=== PATIENT | female | born 1985 | race Caucasian/White ===

== ENCOUNTER 2016-12-15 12:28 | Emergency (ER) | payer BC ==
[2016-12-15 12:49] VITALS: BP 113/69
--- NOTE | 2016-12-15 12:57 | UC ---
Throat Pain/Nasal Lenard HPI - HPI Summary HPI Summary: sore throat x 1 day no nasal congestion, no fever, no chills, no cough - History of Current Complaint Chief Complaint: UCRespiratory Stated Complaint: SORE THROAT Time Seen by Provider: 12/15/16 12:51 Hx Obtained From: Patient Hx Last Menstrual Period: 12/03/16 Onset/Duration: Gradual Onset, Lasting Days - 1, Still Present Severity: Mild Cough: None Associated Signs & Symptoms: Negative: Dysphagia, FB Sensation, Drooling, Wheezing, Hoarseness, Sinus Discomfort, Nasal Discharge, Fever, Vomiting, Rash - Allergies/Home Medications Allergies/Adverse Reactions: Allergies Allergy/AdvReac Type Severity Reaction Status Date / Time No Known Allergies Allergy Verified 12/15/16 12:43 Home Medications: Home Medications Tylenol Cold And Sinus 2 tab PO ONCE PRN 12/15/16 [History] PMH/Surg Hx/FS Hx/Imm Hx Previously Healthy: Yes - Surgical History Surgical History: None - Family History Known Family History: Negative: Cardiac Disease - Social History Alcohol Use: Occasionally Substance Use Type: None Smoking Status (MU): Former Smoker When Did the Patient Quit Smoking/Using Tobacco: 4-5 months ago Review of Systems Constitutional: Negative Skin: Negative Eyes: Negative ENT: Sore Throat Respiratory: Negative Cardiovascular: Negative Gastrointestinal: Negative All Other Systems Reviewed And Are Negative: Yes Physical Exam Triage Information Reviewed: Yes Appearance: Well-Appearing, No Pain Distress, Well-Nourished Vital Signs: Initial Vital Signs Temp 99.6 F 12/15/16 12:45 Pulse 79 12/15/16 12:45 Resp 16 12/15/16 12:45 BP 113/69 12/15/16 12:45 Pulse Ox 98 12/15/16 12:45 Vital Signs Reviewed: Yes Eyes: Positive: Conjunctiva Clear ENT: Positive: Normal ENT inspection, Hearing grossly normal, Pharynx normal, TMs normal. Negative: Pharyngeal erythema, Nasal congestion, Nasal drainage Neck exam: Normal Neck: Positive: Supple, Nontender, No Lymphadenopathy Respiratory: Positive: Chest non-tender, Lungs clear, Normal breath sounds Cardiovascular: Positive: RRR, No Murmur, Pulses Normal Skin Exam: Normal Throat Pain/Nasal Course/Dx - Differential Dx/Diagnosis Provider Diagnoses: viral pharyngitis Discharge - Discharge Plan Condition: Stable Disposition: HOME Patient Education Materials: Pharyngitis (ED) Referrals: No Primary Care Phys,NOPCP [Primary Care Provider] - If Needed Additional Instructions: viral sore throat , no need for abx follow up as needed
== END 2016-12-15 13:02 | disposition home or self-care (01) ==
LOC: UCCORT 12:28
DX: J02.8 Acute pharyngitis due to other specified organisms (principal); Z87.891 Personal history of nicotine dependence
CPT/HCPCS: 99201; G0463

== ENCOUNTER 2017-08-29 12:47 | Emergency (ER) | payer BC, OTHER ==
[2017-08-29 14:24] VITALS: BP 128/70
--- NOTE | 2017-08-29 14:54 | UC ---
General HPI - HPI Summary HPI Summary: 31 yo female c/o approx 3 days rash under bra line ant L side. Starting to creep R ant side and L lat side. + pruritic, worse at night. Baby powder not helping. No other household members with sx. Washes w/ bleach bedding weekly. No cough / cold / fever / chills / gi. Plans to travel on Wednesday (today is Sun). - History of Current Complaint Chief Complaint: [place] Stated Complaint: SKIN COMPLAINT Time Seen by Provider: 08/29/17 14:36 Hx Obtained From: Patient Hx Last Menstrual Period: 08/19/17 Pain Intensity: 2 - Allergy/Home Medications Allergies/Adverse Reactions: Allergies Allergy/AdvReac Type Severity Reaction Status Date / Time No Known Allergies Allergy Verified 08/29/17 14:17 Home Medications: Home Medications Acetaminophen [Pain Relief] 650 mg PO Q4H PRN 08/29/17 [History Confirmed ] PMH/Surg Hx/FS Hx/Imm Hx Previously Healthy: Yes - Surgical History Surgical History: None - Family History Known Family History: Negative: Cardiac Disease - Social History Alcohol Use: None Substance Use Type: None Smoking Status (MU): Former Smoker When Did the Patient Quit Smoking/Using Tobacco: 1 year ago Review of Systems Constitutional: Negative Skin: Other - see hpi Eyes: Negative ENT: Negative Respiratory: Negative Cardiovascular: Negative Gastrointestinal: Negative Genitourinary: Negative Motor: Negative Neurovascular: Negative Musculoskeletal: Negative Neurological: Negative Psychological: Negative Is Patient Immunocompromised?: Yes All Other Systems Reviewed And Are Negative: Yes Physical Exam Triage Information Reviewed: Yes Appearance: Well-Appearing, Well-Nourished Vital Signs: Initial Vital Signs Temp 99.5 F 08/29/17 14:18 Pulse 80 08/29/17 14:18 Resp 20 08/29/17 14:18 BP 128/70 08/29/17 14:18 Pulse Ox 98 08/29/17 14:18 Vital Signs Reviewed: Yes Eye Exam: Normal - grossly normal ENT Exam: Normal - grossly normal Neck exam: Normal - grossly normal Respiratory Exam: Normal - RR regular, no tachypnea, no dyspnea Cardiovascular Exam: Normal - hr normal, nondiaphoretic Abdominal Exam: Normal Musculoskeletal Exam: Normal Neurological Exam: Normal - grossly nonfocal Psychological Exam: Normal - conversing easily and appropriately Skin Exam: Other - normal except L ant and lat bra line with several lesions, some with central white dot, suspicious bite. + redness (c/w irritation less c/ w infection), + excoriation. Extends slightly to right ant. Course/Dx - Course Course Of Treatment: Reviewed coa / tx plan with pt. Questions as posed answered to the best of my ability. - Differential Dx - Multi-Symptom Provider Diagnoses: mite (consider scabies). dermatitis Discharge - Sign-Out/Discharge Documenting (check all that apply): Discharge - Discharge Plan Condition: Stable Disposition: HOME Prescriptions: Clotrimazole/Betamethasone* [Lotrisone Cream*] 1 applic TOPICAL BID #1 tube Permethrin 5% CREAM* 1 applic TOPICAL SEE INSTRUCTIONS #2 tube Patient Education Materials: Scabies (ED), Dermatitis (ED) Referrals: No Primary Care Phys,NOPCP [Primary Care Provider] - [facility] [Outside] Additional Instructions: Follow up with your primary care physician, routine. Seek medical attention for worse or new symptoms. Double rinse clothes. Hypoallergenic soap. Mild white soap for hygiene, hold off "antibacterial" soap until feeling better. - Billing Disposition and Condition Condition: STABLE Disposition: HOME
== END 2017-08-29 15:01 | disposition home or self-care (01) ==
LOC: UCCORT 12:47
DX: B88.0 Other acariasis (principal); L30.9 Dermatitis, unspecified; Z87.891 Personal history of nicotine dependence
CPT/HCPCS: 99212; G0463